=== PATIENT | male | born 1985 | race Caucasian/White ===

== ENCOUNTER → 2018-12-18 16:29 | Outpatient (CLI) | payer OTHER, SELFPAY ==
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
== END ==
PROVIDERS: PCP Physician Assistant; Visit Provider Physician Assistant
DX: M54.2 Cervicalgia (principal)
CPT/HCPCS: 72040